=== PATIENT | male | born 1990 | race Caucasian/White ===

== ENCOUNTER 2018-04-08 10:22 | Emergency (ER) | payer BC ==
[~2018-04-08] VITALS: Ht 172.7 cm; Wt 63.5 kg
[2018-04-08 10:54] LABS: *BILIRUBIN,URIN NEGATIVE (NEGATIVE); *BLOOD, URINE Trace-intact (NEGATIVE); *CLARITY,URINE CLEAR (CLEAR); *COLOR,URINE YELLOW (YELLOW); *KETONES,URINE 1+ (NEGATIVE); *PROTEIN,URINE NEGATIVE (NEGATIVE); *UROBILINOGEN,URINE 0.2 E.U./dl (NORMAL); LEUKOCYTE ESTERASE ,URINE NEGATIVE (NEGATIVE); NITRITE, URINE NEGATIVE (NEGATIVE); UGLUCOSE NEGATIVE (NEGATIVE)
[2018-04-08 11:09] LABS: BACTERIA,URINE NONE SEEN /HPF (NONE SEEN); SQUAMOUS EPITHELIAL CELL,UR FEW /HPF (NONE SEEN); WBC,URINE 0-3 /HPF (0-3)
[2018-04-08 11:10] LABS: MUCUS,URINE FEW /LPF (0-FEW)
--- NOTE | 2018-04-08 12:22 | NUR ---
PT WAS EVALUATED BY DR MORENO. PT WASD/C TO HOME. D/C INSTRUCTIONS GIVEN TO THE PT.
[2018-04-08 12:23] VITALS: BP 131/72
== END 2018-04-08 12:24 | disposition home or self-care (01) ==
LOC: ER 10:22
DX: R10.31 Right lower quadrant pain (principal); Z88.2 Allergy status to sulfonamides; Z90.89 Acquired absence of other organs
CPT/HCPCS: 76705; 81001; 99285; A4663

== ENCOUNTER 2018-04-08 20:29 | Emergency (ER) | payer BC ==
[~2018-04-08] VITALS: Ht 172.7 cm; Wt 63.5 kg
--- NOTE | 2018-04-08 21:00 | NUR ---
patient to ed with c/o right lower quadrant abdominal pain. states started two weeks ago. denies any complaint of nausea or vomiting. patient able to hold down fluid and food. seen her earlier today and told to return if symptoms doen't improve.
--- NOTE | 2018-04-08 22:04 | NUR ---
Patient discharged to home in stable conditon. Written and verbal after care instructions given. Patient verbalizes understanding of instructions.
[2018-04-08 22:05] VITALS: BP 124/86
== END 2018-04-08 22:06 | disposition home or self-care (01) ==
LOC: ER 20:31
DX: R10.31 Right lower quadrant pain (principal); Z88.2 Allergy status to sulfonamides; Z90.89 Acquired absence of other organs
CPT/HCPCS: 74176; 99284; A4663

== ENCOUNTER 2020-03-21 00:22 | Emergency (ER) | payer SELFPAY ==
--- NOTE | 2020-03-21 00:29 | NUR ---
Patient choose not to be traiged or seen by ERMD.
== END 2020-03-21 00:31 | disposition left against medical advice (07) ==
LOC: ER 00:30
DX: Z75.3 Unavailability and inaccessibility of health-care facilities (principal)